=== PATIENT | female | born 1975 | race Caucasian/White ===

== ENCOUNTER 2022-01-18 05:14 | Emergency (ER) | payer BC, OTHER ==
[2022-01-18] MEDS ORDERED: Dextrose 5%-Lactated Ringers 1,000 ML IV STA (05:33)
[2022-01-18] MEDS ORDERED: Prochlorperazine 10 MG/2 ML SDV IVPUSH ONE (05:33)
[2022-01-18] MEDS ORDERED: Ketorolac 30 MG/ML SDV IVPUSH ONE (05:33)
[2022-01-18] MEDS ORDERED: diphenhydrAMINE 50 MG/ML SDV IVPUSH ONE (05:33)
[2022-01-18 06:25] LABS: CORONAVIRUS COVID-19 NAA NEGATIVE (NEGATIVE); INFLUENZA A NAA NEGATIVE (NEGATIVE); INFLUENZA B NAA NEGATIVE (NEGATIVE)
[2022-01-18 06:32] VITALS: BP 125/73; PULSE 98
== END 2022-01-18 06:59 | disposition home or self-care (01) ==
LOC: MW.ED 05:14
DX: G43.909 Migraine, unspecified, not intractable, without status migrainosus (principal); Z88.8 Allergy status to other drugs, medicaments and biological substances; Z79.899 Other long term (current) drug therapy
CPT/HCPCS: 0240U; 96361; 96374; 96375; 99283; J0780; J1200; J1885; J7121

== ENCOUNTER 2022-02-05 22:39 | Emergency (ER) | payer BC ==
[2022-02-05] MEDS ORDERED: methylPREDNISolone Sodium Succinate 125 MG/2 ML SDV IVPUSH ONE (22:52)
[2022-02-05] MEDS ORDERED: Sodium Chloride 0.9% 1,000 ML IV ONE (22:52)
[2022-02-05] MEDS ORDERED: Ondansetron 4 MG/2 ML SDV IVPUSH ONE (22:52)
[2022-02-05] MEDS ORDERED: diphenhydrAMINE 50 MG/ML SDV IVPUSH ONE (22:52)
[2022-02-05 23:57] LABS: CARBON DIOXIDE,CO2 24.6 mmol/L (21.0-32.0); POTASSIUM,K 4.7 mmol/L (3.5-5.1)
[2022-02-06 00:15] VITALS: BP 93/52; PULSE 67
== END 2022-02-06 00:14 | disposition home or self-care (01) ==
LOC: MW.ED 22:39
DX: T78.40XA Allergy, unspecified, initial encounter (principal); Z88.5 Allergy status to narcotic agent; Z88.8 Allergy status to other drugs, medicaments and biological substances; Z79.899 Other long term (current) drug therapy
CPT/HCPCS: 36415; 80053; 85025; 96361; 96374; 96375; 99283; J1200; J2405; J2930; J7030; 99284

== ENCOUNTER 2022-02-07 10:33 | Observation (INO) | payer BC ==
[2022-02-07] MEDS ORDERED: diphenhydrAMINE 50 MG/ML SDV IVPUSH ONE (10:45)
[2022-02-07] MEDS ORDERED: Famotidine 20 MG/2 ML SDV IVPUSH ONE (10:45)
[2022-02-07] MEDS ORDERED: Sodium Chloride 0.9% 1,000 ML IV ONE (10:45)
[2022-02-07] MEDS ORDERED: methylPREDNISolone Sodium Succinate 125 MG/2 ML SDV IVPUSH ONE (10:45)
[2022-02-07] MEDS ORDERED: Ondansetron 4 MG/2 ML SDV IVPUSH ONE (10:59)
[2022-02-07] MEDS ORDERED: EPINEPHrine 1 MG/ML SDV IM ONE (10:59)
[2022-02-07] MEDS ORDERED: Atropine 0.1 MG/ML 10 ML Syringe IVPUSH ONE (11:59)
[2022-02-07 12:59] LABS: CARBON DIOXIDE,CO2 23.6 mmol/L (21.0-32.0); POTASSIUM,K 4.1 mmol/L (3.5-5.1)
[2022-02-07] MEDS ORDERED: Lactated Ringers 1,000 ML IV ONE (13:36)
[2022-02-07] MEDS ORDERED: Albuterol 0.083% 2.5 MG/3 ML Neb Soln NEB PRN (16:47)
[2022-02-07] MEDS ORDERED: Sodium Chloride 0.9% 2.5 ML Syringe FLUSH PRN (16:47)
[2022-02-07] MEDS ORDERED: Sodium Chloride 0.9% 10 ML Syringe FLUSH PRN (16:47)
[2022-02-07] MEDS ORDERED: Acetaminophen 325 MG Tab PO PRN (16:47)
[2022-02-07] MEDS ORDERED: Ondansetron 4 MG/2 ML SDV IVPUSH PRN (16:47)
[2022-02-07] MEDS ORDERED: EPINEPHrine 1 MG/ML SDV IM PRN (16:52)
[2022-02-07] MEDS ORDERED: diphenhydrAMINE 50 MG/ML SDV IVPUSH PRN (16:54)
[2022-02-07] MEDS: Lactated Ringers 1,000 ML IV SCH (18:23)
[2022-02-07] MEDS: Cetirizine 10 MG Tab PO SCH (18:23)
[2022-02-07] MEDS ORDERED: ZOLPIDEM 12.5 MG PO SCH (21:50)
[2022-02-07] MEDS ORDERED: Rosuvastatin 10 MG Tab PO SCH (22:15)
[2022-02-08] MEDS: Lactated Ringers 1,000 ML IV SCH (03:50)
[2022-02-08 07:13] LABS: CARBON DIOXIDE,CO2 25.9 mmol/L (21.0-32.0)
[2022-02-08] MEDS ORDERED: Famotidine 20 MG Tab PO SCH (07:30)
[2022-02-08] MEDS ORDERED: predniSONE 20 MG Tab PO SCH (08:00)
[2022-02-08] MEDS: Cetirizine 10 MG Tab PO SCH (08:19)
[2022-02-08] MEDS ORDERED: predniSONE 20 MG Tab PO ONE (08:36)
[2022-02-08] MEDS ORDERED: Celecoxib 100 MG Cap PO SCH (09:00)
[2022-02-08] MEDS ORDERED: diphenhydrAMINE 25 MG Cap PO SCH (10:00)
[2022-02-08] MEDS: Propranolol 80 MG Cap.ER PO SCH ×2 (10:45→11:37)
[2022-02-08 10:51] VITALS: BP 157/86; PULSE 55
[2022-02-08] MEDS ORDERED: Rosuvastatin 10 MG Tab PO SCH (21:00)
[2022-02-08] MEDS ORDERED: Cetirizine 10 MG Tab PO SCH (21:00)
== END 2022-02-08 12:55 | disposition home or self-care (01) ==
LOC: MW.ED 10:33 → MW.MS 16:23
PROVIDERS: ADMIT Student in an Organized Health Care Education/Training Program; ATTEND Student in an Organized Health Care Education/Training Program
DX: G43.909 Migraine, unspecified, not intractable, without status migrainosus (principal); I10 Essential (primary) hypertension; E78.2 Mixed hyperlipidemia; F32.A Depression, unspecified; F41.9 Anxiety disorder, unspecified; T78.40XD Allergy, unspecified, subsequent encounter; Z79.899 Other long term (current) drug therapy; Z79.52 Long term (current) use of systemic steroids; Z88.5 Allergy status to narcotic agent; Z88.8 Allergy status to other drugs, medicaments and biological substances; Z20.822 Contact with and (suspected) exposure to COVID-19
CPT/HCPCS: 36415; 80048; 80053; 81001; 81025; 82550; 83735; 83880; 84100; 84443; 84703; 85025; 85610; 85730; 87086; 87635; 93005; 96361; 96372; 96374; 96375; 99285; A9270; G0378; J0171; J0461; J1200; J2405; J2930; J7030; J7120; 93010; 99284; U0002

== ENCOUNTER 2022-07-15 15:09 | Emergency (ER) | payer BC ==
[2022-07-15 16:52] VITALS: PULSE 71
[2022-07-15] MEDS ORDERED: Acetaminophen/HYDROcodone 325-10 MG Tab PO ONE (16:52)
[2022-07-15] MEDS ORDERED: Ondansetron 4 MG Tab.DIS PO ONE (16:52)
[2022-07-15 18:25] VITALS: BP 135/88
== END 2022-07-15 18:25 | disposition home or self-care (01) ==
LOC: MW.ED 15:09
DX: S46.002A Unspecified injury of muscle(s) and tendon(s) of the rotator cuff of left shoulder, initial encounter (principal); I10 Essential (primary) hypertension; E78.00 Pure hypercholesterolemia, unspecified; Z86.16 Personal history of COVID-19; Z88.5 Allergy status to narcotic agent; Z79.899 Other long term (current) drug therapy; W00.0XXA Fall on same level due to ice and snow, initial encounter
CPT/HCPCS: 73030; 73060; 99283; A9270

== ENCOUNTER 2025-05-23 02:22 | Emergency (ER) | payer BC ==
[2025-05-23 03:16] LABS: BASOPHILS ABSOLUTE AUTO 0.07 K/uL (0.00-0.20); BASOPHILS PERCENT AUTO 0.7 % (0.0-1.0); EOSINOPHILS ABSOLUTE AUTO 0.10 K/uL (0.00-0.45); EOSINOPHILS PERCENT AUTO 1.0 % (0.0-6.0); IMMATURE GRAN ABSOLUTE AUTO 0.02 K/uL (0.00-0.05); IMMATURE GRAN PERCENT AUTO 0.2 % (0.0-0.4); LYMPHOCYTES ABSOLUTE AUTO 3.43 K/uL (1.00-4.80); LYMPHOCYTES PERCENT AUTO 33.1 % (24.0-44.0); MEAN PLATELET VOLUME 10.0 fL (9.4-12.3); MONOCYTES ABSOLUTE AUTO 0.50 K/uL (0.00-0.80); MONOCYTES PERCENT AUTO 4.8 % (0.0-8.0); NEUTROPHILS ABSOLUTE AUTO 6.23 K/uL (1.80-7.70); NEUTROPHILS PERCENT AUTO 60.2 % (41.0-71.0); NRBC ABSOLUTE 0.00 K/uL (0.00-0.02); NRBC PERCENT 0.0 /100WBC (0.0-0.2); PLATELET COUNT,PLT 321 K/uL (150-400); RED BLOOD CELL COUNT 3.74 M/uL (4.10-5.30); WHITE BLOOD CELL COUNT,WBC 10.35 K/uL (3.9-11.3)
[2025-05-23 03:46] LABS: A/G RATIO 1.1 (0.9-1.6); ALANINE AMINOTRANSFERASE,ALT 24.0 IU/L (14-63); ASPARTATE AMNIOTRANSFERASE,AST 15.0 IU/L (15-37); BILIRUBIN TOTAL 0.3 mg/dL (0.2-1.0); BLOOD UREA NITROGEN,BUN 13.0 mg/dL (7.0-18.0); CARBON DIOXIDE,CO2 32.1 mmol/L (21.0-32.0); CHLORIDE,CL 104.0 mmol/L (98-107); CREATININE 1.2 mg/dL (0.6-1.0); EST CRCL DRUG DOSING (CG) 47.43 mL/min; GLUCOSE RANDOM 151.0 mg/dL (74-106); POTASSIUM,K 3.3 mmol/L (3.5-5.1); PROTEIN TOTAL,TP 7.0 g/dL (6.4-8.2); SODIUM,NA 141.0 mmol/L (136-145)
[2025-05-23 03:51] LABS: ESTIMATED GFR 56.0 mL/min (>60)
[2025-05-23 03:55] LABS: GLUCOSE,URINE NEGATIVE (NEGATIVE); OCCULT BLOOD,URINE NEGATIVE (NEGATIVE)
[2025-05-23 04:07] LABS: APPEARANCE,URINE HAZY
[2025-05-23 04:09] LABS: EPITHELIAL CELLS,URINE FEW (NONE-FEW)
[2025-05-23] MEDS: Alum Hydrox/Mag Hydrox/Simeth 15 ML, Metoclopramide 5 MG, Lidocaine 2% 5 ML PO ONE (04:39)
[2025-05-23] MEDS: Ondansetron 4 MG Tab.DIS PO ONE (04:39)
[2025-05-23] MEDS: Iopamidol 755 MG/ML 500 ML Multipack Bottle IVPUSH ONE (05:46)
[2025-05-23 06:53] VITALS: BP 118/77; PULSE 82
== END 2025-05-23 07:14 | disposition home or self-care (01) ==
LOC: MW.ED 02:22
DX: K30 Functional dyspepsia (principal); R10.A2 Flank pain, left side; R20.2 Paresthesia of skin; E87.6 Hypokalemia; E86.0 Dehydration; R79.89 Other specified abnormal findings of blood chemistry; I10 Essential (primary) hypertension; K21.9 Gastro-esophageal reflux disease without esophagitis; E78.00 Pure hypercholesterolemia, unspecified; E11.9 Type 2 diabetes mellitus without complications; Z75.3 Unavailability and inaccessibility of health-care facilities; Z88.8 Allergy status to other drugs, medicaments and biological substances; Z79.899 Other long term (current) drug therapy; Z90.49 Acquired absence of other specified parts of digestive tract
CPT/HCPCS: 36415; 74177; 80053; 81001; 83690; 84484; 85025; 96360; 99285; A9270; J3490; J7030; Q9967; 93010; 99284

== ENCOUNTER 2025-05-24 15:26 | Emergency (ER) | payer BC ==
[2025-05-24 15:41] LABS: BASOPHILS ABSOLUTE AUTO 0.04 K/uL (0.00-0.20); BASOPHILS PERCENT AUTO 0.4 % (0.0-1.0); EOSINOPHILS ABSOLUTE AUTO 0.09 K/uL (0.00-0.45); EOSINOPHILS PERCENT AUTO 0.9 % (0.0-6.0); IMMATURE GRAN ABSOLUTE AUTO 0.04 K/uL (0.00-0.05); IMMATURE GRAN PERCENT AUTO 0.4 % (0.0-0.4); LYMPHOCYTES ABSOLUTE AUTO 2.55 K/uL (1.00-4.80); LYMPHOCYTES PERCENT AUTO 25.0 % (24.0-44.0); MEAN PLATELET VOLUME 10.1 fL (9.4-12.3); MONOCYTES ABSOLUTE AUTO 0.52 K/uL (0.00-0.80); MONOCYTES PERCENT AUTO 5.1 % (0.0-8.0); NEUTROPHILS ABSOLUTE AUTO 6.96 K/uL (1.80-7.70); NEUTROPHILS PERCENT AUTO 68.2 % (41.0-71.0); NRBC ABSOLUTE 0.00 K/uL (0.00-0.02); NRBC PERCENT 0.0 /100WBC (0.0-0.2); PLATELET COUNT,PLT 309 K/uL (150-400); RED BLOOD CELL COUNT 4.11 M/uL (4.10-5.30); WHITE BLOOD CELL COUNT,WBC 10.20 K/uL (3.9-11.3)
[2025-05-24 15:58] LABS: INR < 0.93 (0.86-1.11); PTT,PARTIAL THROMBOPLSTIN TIME 22.2 SEC (23.9-30.7)
[2025-05-24 16:04] LABS: A/G RATIO 1.1 (0.9-1.6); ALANINE AMINOTRANSFERASE,ALT 28.0 IU/L (14-63); ASPARTATE AMNIOTRANSFERASE,AST 18.0 IU/L (15-37); BILIRUBIN TOTAL 0.3 mg/dL (0.2-1.0); BLOOD UREA NITROGEN,BUN 9.0 mg/dL (7.0-18.0); CARBON DIOXIDE,CO2 29.8 mmol/L (21.0-32.0); CHLORIDE,CL 103.0 mmol/L (98-107); CREATININE 1.2 mg/dL (0.6-1.0); EST CRCL DRUG DOSING (CG) 47.43 mL/min; GLUCOSE RANDOM 125.0 mg/dL (74-106); POTASSIUM,K 3.1 mmol/L (3.5-5.1); PROTEIN TOTAL,TP 7.2 g/dL (6.4-8.2); SODIUM,NA 141.0 mmol/L (136-145)
[2025-05-24 16:07] LABS: ESTIMATED GFR 56.0 mL/min (>60)
[2025-05-24] MEDS: Iopamidol 755 MG/ML 500 ML Multipack Bottle IVPUSH STA (16:27)
[2025-05-24] MEDS: Potassium Chloride 20 MEQ Tab.ER PO ONE (18:33)
[2025-05-24 18:35] VITALS: BP 131/72; PULSE 88
== END 2025-05-24 18:37 | disposition home or self-care (01) ==
LOC: MW.ED 15:26
DX: E87.6 Hypokalemia (principal); R20.0 Anesthesia of skin; F41.9 Anxiety disorder, unspecified; E78.00 Pure hypercholesterolemia, unspecified; I10 Essential (primary) hypertension; K21.9 Gastro-esophageal reflux disease without esophagitis; Z88.5 Allergy status to narcotic agent; Z86.16 Personal history of COVID-19
CPT/HCPCS: 36415; 70450; 70496; 70498; 80053; 82947; 84703; 85025; 85610; 85730; 86900; 86901; 93005; 96360; 99285; A9270; J7030; Q9967; 99283